=== PATIENT | male | born 1980 ===

== ENCOUNTER → 2018-04-20 | Outpatient (REF) | END | disposition home or self-care (01) | DRG 951 | LOC: PAGE 13:00 → EDSEX 13:00 | PROVIDERS: ATTEND Nurse Practitioner Family | DX: Z02.1 Encounter for pre-employment examination (principal); Z23 Encounter for immunization ==

== ENCOUNTER → 2018-05-03 | Outpatient (REF) | END | disposition home or self-care (01) | DRG 951 | LOC: PAGE 09:00 | PROVIDERS: ATTEND Nurse Practitioner Family | DX: Z23 Encounter for immunization (principal) ==